=== PATIENT | female | born 1940 | race Caucasian/White ===

== ENCOUNTER 2020-11-12 14:52 | Emergency (ER) | payer MEDICARE ==
[~2020-11-12] VITALS: Ht 175.3 cm; Wt 68.2 kg
[2020-11-12 15:37] VITALS: BP 128/63
[2020-11-12 15:59] LABS: CLARITY,URINE SLIGHTLY CLOUDY (Clear); COLOR,URINE YELLOW (Yellow); GLUCOSE, URINE NEGATIVE (Neg); KETONES,URINE NEGATIVE (Neg); LEUKOCYTE ESTERASE ,URINE SMALL (Neg); NITRITES, URINE NEGATIVE (Neg); OCCULT BLOOD,URINE SMALL (Neg); PH,URINE 5.5 (4.8-8.0); PROTEIN,URINE 100 mg/dl (Neg)
[2020-11-12 16:05] LABS: UA COLLECTION TYPE CLN CATCH MIDSTREAM
[2020-11-12 16:06] LABS: BACTERIA,URINE 1+ /HPF (Neg); HYALINE CASTS 0-3 /LPF (NEGATIVE); MUCUS STRANDS FEW /LPF (Neg); RBC,URINE 0-2 /HPF (0-2); SQUAMOUS EPITHELIAL CELL,UR NONE SEEN /LPF (FEW); WBC,URINE TNTC /HPF (0-4)
[2020-11-12] MEDS ORDERED: CEPH250T PO (16:19)
== END 2020-11-12 16:30 | disposition home or self-care (01) ==
LOC: ER 14:53
DX: N39.0 Urinary tract infection, site not specified (principal); M54.9 Dorsalgia, unspecified; Z90.49 Acquired absence of other specified parts of digestive tract; Z90.710 Acquired absence of both cervix and uterus; Z79.899 Other long term (current) drug therapy
CPT/HCPCS: 81001; 87077; 87088; 87186; 99283

== ENCOUNTER 2021-08-28 08:32 | Day surgery (SDC) | payer MEDICARE ==
[~2021-08-28] VITALS: Ht 175.3 cm; Wt 57.2 kg
[2021-08-28 09:00] VITALS: BP 161/73
[2021-08-28] MEDS ORDERED: normal saline 1000ml 1,000 ML IV PRN (09:10)
[2021-08-28] MEDS ORDERED: CYCL50CA3 PO (09:21)
[2021-08-28] MEDS ORDERED: DEXA4TAB79 PO (09:21)
[2021-08-28] MEDS ORDERED: ACYC200C30 PO (09:21)
[2021-08-28] MEDS ORDERED: LACT1CAP65 PO (09:22)
[2021-08-28] MEDS ORDERED: midazolam 1 mg/ML 2ml injection ONE (10:21)
[2021-08-28] MEDS ORDERED: fentaNYL/PF 50MCG/1 ML 2ML syringe ONE (10:21)
[2021-08-28] MEDS ORDERED: LIDOcaine 1% 30ml preserv. free vial ONE (10:22)
[2021-08-28] MEDS ORDERED: heparin sodium, porcine/PF 100unit/ml 5ML syringe ONE (10:22)
[2021-08-28 11:30] VITALS: BP 111/46
[2021-08-28 11:45] VITALS: BP 130/28
[2021-08-28 12:00] VITALS: BP 150/57
[2021-08-28 12:15] VITALS: BP 138/51
[2021-08-28 12:30] VITALS: BP 132/63
== END 2021-08-28 12:35 | disposition home or self-care (01) ==
LOC: SSTAY O 08:32
PROVIDERS: ATTEND Radiology Vascular & Interventional Radiology
DX: C90.00 Multiple myeloma not having achieved remission (principal); Z88.0 Allergy status to penicillin; Z88.8 Allergy status to other drugs, medicaments and biological substances; Z79.899 Other long term (current) drug therapy
CPT/HCPCS: 36561; 76937; 77001; 99152; C1769; C1788; C1894; J1642; J2250; J3010; J3490; 99153

== ENCOUNTER 2021-11-08 08:34 | Day surgery (SDC) | payer MEDICARE ==
[2021-11-08] VITALS (19 sets, daily range): BP systolic 130–190; BP diastolic 52–92
[~2021-11-08] VITALS: Ht 176.5 cm; Wt 54.4 kg
[~2021-11-08 08:34] MED LIST: ACYC200C30 PO; CYCL50CA3 PO; DEXA4TAB79 PO; LACT1CAP65 PO
[2021-11-08] MEDS ORDERED: normal saline 1000ml 1,000 ML IV SCH (09:25)
[2021-11-08 12:02] LABS: BASOPHILS % (AUTO) 0.3 % (0-1); EOSINOPHILS % (AUTO) 0.1 % (0-6); HEMATOCRIT 29.9 % (35.0-45.0); HEMOGLOBIN 9.9 g/dl (12.0-16.0); LYMPHOCYTES # (AUTO) 0.3 X10'3 (1.1-4.8); LYMPHOCYTES % (AUTO) 8.3 % (21-51); MEAN CORPUSCULAR VOLUME 96.7 FL (78-98); MEAN PLATELET VOLUME 8.1 FL (7.4-10.4); MONOCYTES # (AUTO) 0.2 X10'3 (0-0.9); MONOCYTES % (AUTO) 4.2 % (2-12); NEUTROPHILS # (AUTO) 3.6 X10'3 (1.8-7.7); NEUTROPHILS % (AUTO) 87.1 % (42-75); PLATELET COUNT 173 X10'3 (140-440); RED BLOOD COUNT 3.09 X10'6 (4.20-5.60); RED CELL DISTRIBUTION WIDTH 18.1 % (11.5-14.5); WHITE BLOOD COUNT 4.1 X10'3 (4.5-11.0)
[2021-11-08] MEDS ORDERED: PANT-47 PO (12:30)
[2021-11-08] MEDS ORDERED: NALO4SPR BOTHNARES (12:30)
[2021-11-08] MEDS ORDERED: ERGO400C PO (12:30)
[2021-11-08] MEDS ORDERED: ALBU8.5H17 INH (12:30)
[2021-11-08] MEDS ORDERED: ONDA8TAB13 PO (12:30)
[2021-11-08] MEDS ORDERED: CYCL50CA3 PO (12:30)
[2021-11-08] MEDS ORDERED: HYDR-3964 PO (12:30)
[2021-11-08] MEDS ORDERED: PROC10TA10 PO (12:30)
[2021-11-08] MEDS ORDERED: LIDOCAINE 1% w/preservative (10 MG/ML) inj. 10mL VIAL ONE (12:40)
[2021-11-08] MEDS ORDERED: midazolam 1 mg/ML 2ml injection ONE (12:59)
[2021-11-08] MEDS ORDERED: fentaNYL/PF 50MCG/1 ML 2ML syringe ONE (13:00)
[2021-11-08] MEDS ORDERED: DESMOPRESSIN IV ONE ×2 (13:10→13:15)
[2021-11-08] MEDS ORDERED: NORMAL SALINE IV ONE ×2 (13:10→13:15)
[2021-11-08] MEDS ORDERED: gelatin sponge, absorbable (Gelfoam 12-7MM) sponge TP ONE (13:31)
[2021-11-08 13:34] LABS: ALANINE AMINOTRANSFERASE 10 U/L (12-78); ALBUMIN 3.1 G/DL (3.4-5.0); ALBUMIN/GLOBULIN RATIO 0.9 (1.1-1.5); ALKALINE PHOSPHATASE 68 IU/L (46-116); ANION GAP 7 (8-16); ASPARTATE AMINO TRANSFERASE 12 U/L (10-37); BILIRUBIN,TOTAL 0.4 MG/DL (0.1-1.0); BLOOD UREA NITROGEN 41 MG/DL (7-18); BUN/CREATININE RATIO 11.6 (6.6-38.0); CALCIUM 8.5 MG/DL (8.5-10.1); CHLORIDE 105 MMOL/L (99-107); CREATININE 3.54 MG/DL (0.40-0.90); GLUCOSE 83 MG/DL (70-104); POTASSIUM 4.4 MMOL/L (3.5-5.1); SODIUM 143 MMOL/L (135-145); TOTAL PROTEIN 6.7 G/DL (6.4-8.2); eGFR 12 ML/MIN
[2021-11-08] MEDS ORDERED: cyclobenzaprine 10mg tablet PO STA (16:36)
== END 2021-11-08 18:20 | disposition home or self-care (01) ==
LOC: SSTAY O 08:34
PROVIDERS: ATTEND Radiology Vascular & Interventional Radiology
DX: C90.00 Multiple myeloma not having achieved remission (principal); Z88.0 Allergy status to penicillin; Z88.8 Allergy status to other drugs, medicaments and biological substances; Z79.899 Other long term (current) drug therapy; Z79.01 Long term (current) use of anticoagulants
CPT/HCPCS: 36415; 50200; 77012; 80053; 85025; 85610; 99152; 99153; J2250; J3010; 88300; 88313; 88346; 88350